=== PATIENT | female | born 1985 | race Caucasian/White ===

== ENCOUNTER 2016-06-01 19:59 | Emergency (ER) | payer MEDICAID ==
[~2016-06-01] VITALS: Ht 167.6 cm; Wt 106.8 kg
[2016-06-01 20:08] VITALS: BP 167/103
[2016-06-01] MEDS ORDERED: FAMOTIDINE 20 MG TABLET PO ONE (20:30)
[2016-06-01] MEDS ORDERED: DIPHENHYDRAMINE 50 MG/ML, 1ML IM ONE (20:30)
[2016-06-01] MEDS ORDERED: LORazepam 1MG TABLET PO ONE (20:30)
[2016-06-01 20:43] LABS: HEMOGLOBIN 12.6 g/dL (11.7-16.4)
[2016-06-01 20:55] LABS: BLOOD UREA NITROGEN 15 mg/dL (7-18)
== END 2016-06-01 21:37 | disposition left against medical advice (07) ==
LOC: ED 21:31
DX: F41.1 Generalized anxiety disorder (principal); F17.200 Nicotine dependence, unspecified, uncomplicated; F11.10 Opioid abuse, uncomplicated; T65.91XA Toxic effect of unspecified substance, accidental (unintentional), initial encounter; Y92.89 Other specified places as the place of occurrence of the external cause; Z88.0 Allergy status to penicillin; Z88.6 Allergy status to analgesic agent
CPT/HCPCS: 36415; 80048; 82040; 85025; 99284

== ENCOUNTER 2017-06-08 19:42 | Observation (INO) | payer MEDICAID ==
[~2017-06-08] VITALS: Ht 167.6 cm; Wt 116.0 kg
[2017-06-08] MEDS ORDERED: BUPR-173 PO (20:42)
[2017-06-08] MEDS ORDERED: HYDR25TA11 PO (20:42)
[2017-06-08 20:47] LABS: BASOPHILS # (AUTO) 0.03 x10^3/uL (0-0.1); BASOPHILS % (AUTO) 1 % (0-1); EOSINOPHILS # (AUTO) 0.06 x10^3/uL (0-0.4); EOSINOPHILS % (AUTO) 1 % (1-7); LYMPHOCYTES # (AUTO) 2.17 x10^3/uL (1-3.4); LYMPHOCYTES % (AUTO) 45 % (22-44); MD NO; MEAN CORPUSCULAR HEMOGLOBIN 29.7 pg (27.0-34.8); MEAN CORPUSCULAR HGB CONC 33.7 g/dL (32.4-35.8); MEAN CORPUSCULAR VOLUME 88.4 fL (80-100); MEAN PLATELET VOLUME 8.4 fL (7.4-10.4); MONOCYTES # (AUTO) 0.27 x10^3/uL (0.2-0.8); MONOCYTES % (AUTO) 6 % (2-9); NEUTROPHILS # (AUTO) 2.33 x10^3/uL (1.8-6.8); NEUTROPHILS % (AUTO) 48 % (42-75); PLATELET COUNT 233 x10^3/uL (130-400); RED BLOOD COUNT 4.47 x10^6/uL (3.82-5.3); RED CELL DISTRIBUTION WIDTH 13.9 % (9.6-15.2)
[2017-06-08] MEDS ORDERED: METH40TA3 PO (20:51)
[2017-06-08 21:01] LABS: ALBUMIN 3.5 g/dL (3.4-5.0); ANION GAP 10 mmol/L (5-15); CALCIUM 8.2 mg/dL (8.5-10.1); CHLORIDE 106 mmol/L (98-107); SALICYLATE LEVEL 2.7 mg/dL (2.8-20.0)
[2017-06-08 21:04] LABS: ALANINE AMINOTRANSFERASE 52 U/L (12-78); ALKALINE PHOSPHATASE 66 U/L (45-117); BILIRUBIN,TOTAL 0.2 mg/dL (0.2-1.0); CREATININE 0.79 mg/dL (0.55-1.02); TOTAL PROTEIN 7.5 g/dL (6.4-8.2)
[2017-06-08 21:21] LABS: ACETAMINOPHEN < 2 mcg/mL (10-30)
[2017-06-08 21:29] LABS: AMPHETAMINE SCREEN, URINE Negative (Negative); BARBITURATE SCREEN, URINE Negative (Negative); BENZODIAZEPINE SCREEN, URINE Negative (Negative); CANNABINOID SCREEN, URINE Negative (Negative); COCAINE SCREEN, URINE Negative (Negative); METHADONE SCREEN, URINE Positive (Negative); OPIATE SCREEN, URINE Positive (Negative)
[2017-06-08] MEDS ORDERED: ZIPRASIDONE 20MG CAPSULE ONE (22:13)
[2017-06-08] MEDS: ZIPRASIDONE 20MG CAPSULE PO SCH (22:18)
[2017-06-09 00:15] LABS: HCG UR SG 1.085 (1.003-1.030)
[2017-06-09 02:39] VITALS: BP 136/81
[2017-06-09 08:58] VITALS: BP 135/99
[2017-06-09] MEDS: METHADONE INTENSOL 10 MG/ML ORAL CONC PO SCH (08:58)
[2017-06-09] MEDS: ACETAMINOPHEN 325 MG TABLET PO PRN ×2 (09:00→17:55)
[2017-06-09] MEDS: BUPROPION SR 100 MG TABLET PO SCH ×2 (09:00→21:00)
[2017-06-09] MEDS: ZIPRASIDONE 20MG CAPSULE PO SCH (09:00)
[2017-06-09 20:00] VITALS: BP 129/93
[2017-06-09] MEDS ORDERED: QUETIAPINE 25MG TABLET PO PRN (20:00)
[2017-06-09] MEDS ORDERED: ZIPRASIDONE 20MG CAPSULE PO ONE (20:30)
[2017-06-09] MEDS: NICOTINE 7 MG/24 HR PATCH.TD24 TD SCH (20:54)
[2017-06-10 07:36] VITALS: BP 125/84
[2017-06-10] MEDS: ACETAMINOPHEN 325 MG TABLET PO PRN ×2 (07:52→19:26)
[2017-06-10] MEDS: METHADONE INTENSOL 10 MG/ML ORAL CONC PO SCH (08:04)
[2017-06-10] MEDS: BUPROPION SR 100 MG TABLET PO SCH ×2 (08:05→20:35)
[2017-06-10 10:37] VITALS: BP 128/89
[2017-06-10] MEDS ORDERED: LORazepam 0.5MG TABLET ONE (10:47)
[2017-06-10] MEDS ORDERED: LORazepam 0.5MG TABLET PO ONE (11:00)
[2017-06-10] MEDS ORDERED: ZIPRASIDONE 20 MG INJ IM PRN (11:30)
[2017-06-10] MEDS ORDERED: ZIPRASIDONE 20MG CAPSULE ONE (11:32)
[2017-06-10] MEDS ORDERED: ZIPRASIDONE 20 MG INJ IM ONE (11:32)
[2017-06-10] MEDS: ZIPRASIDONE 20MG CAPSULE PO PRN (11:38)
[2017-06-10] MEDS ORDERED: LORazepam 0.5MG TABLET PO PRN (19:30)
[2017-06-10 19:55] VITALS: BP 140/88
[2017-06-10] MEDS: NICOTINE 7 MG/24 HR PATCH.TD24 TD SCH (20:00)
[2017-06-11] MEDS: ZIPRASIDONE 20MG CAPSULE PO PRN (00:51)
[2017-06-11] MEDS: ACETAMINOPHEN 325 MG TABLET PO PRN (00:51)
[2017-06-11 08:00] VITALS: BP 130/83
[2017-06-11] MEDS: BUPROPION SR 100 MG TABLET PO SCH ×2 (09:00→09:38)
[2017-06-11] MEDS: METHADONE INTENSOL 10 MG/ML ORAL CONC PO SCH (09:39)
[2017-06-11] MEDS ORDERED: LORA-445 PO (11:15)
[2017-06-11] MEDS ORDERED: ACET325T14 PO (11:15)
[2017-06-11] MEDS ORDERED: ZIPR20CA2 PO (11:15)
[2017-06-11] MEDS ORDERED: NICO-485 TD (11:15)
== END 2017-06-11 11:26 ==
LOC: SUATTDRO 23:40 → ED 23:51 → EDIP 06-09 00:21 → 3E 06-09 02:30
PROVIDERS: ADMIT Hospitalist; ATTEND Hospitalist
DX: F22 Delusional disorders (principal); F23 Brief psychotic disorder; F32.9 Major depressive disorder, single episode, unspecified; F17.210 Nicotine dependence, cigarettes, uncomplicated; E66.01 Morbid (severe) obesity due to excess calories
CPT/HCPCS: 36415; 80053; 80307; 80329; 81025; 85025; 93005; G0378; J3486; G0480

== ENCOUNTER 2017-08-20 16:34 | Observation (INO) | payer MEDICAID ==
[~2017-08-20] VITALS: Ht 167.6 cm; Wt 98.0 kg
[~2017-08-20 16:34] MED LIST: ACET325T14 PO; BUPR-173 PO; HYDR25TA11 PO; LORA-445 PO; METH40TA3 PO; NICO-485 TD; ZIPR20CA2 PO
[2017-08-20] MEDS ORDERED: METH-356 PO (16:53)
[2017-08-20 17:18] LABS: BASOPHILS # (AUTO) 0.03 x10^3/uL (0-0.1); BASOPHILS % (AUTO) 1 % (0-1); EOSINOPHILS # (AUTO) 0.06 x10^3/uL (0-0.4); EOSINOPHILS % (AUTO) 1 % (1-7); LYMPHOCYTES # (AUTO) 2.02 x10^3/uL (1-3.4); LYMPHOCYTES % (AUTO) 36 % (22-44); MD NO; MEAN CORPUSCULAR HEMOGLOBIN 29.5 pg (27.0-34.8); MEAN CORPUSCULAR HGB CONC 33.7 g/dL (32.4-35.8); MEAN CORPUSCULAR VOLUME 87.3 fL (80-100); MEAN PLATELET VOLUME 8.8 fL (7.4-10.4); MONOCYTES # (AUTO) 0.27 x10^3/uL (0.2-0.8); MONOCYTES % (AUTO) 5 % (2-9); NEUTROPHILS # (AUTO) 3.26 x10^3/uL (1.8-6.8); NEUTROPHILS % (AUTO) 58 % (42-75); PLATELET COUNT 209 x10^3/uL (130-400); RED BLOOD COUNT 4.42 x10^6/uL (3.82-5.3); RED CELL DISTRIBUTION WIDTH 13.5 % (9.6-15.2)
[2017-08-20] MEDS ORDERED: BACITRACIN ZINC OINT 500U/GM, 0.9 GM ONE (17:21)
[2017-08-20 17:30] LABS: ACETAMINOPHEN 2 mcg/mL (10-30); ALANINE AMINOTRANSFERASE 38 U/L (12-78); ALBUMIN 3.3 g/dL (3.4-5.0); ANION GAP 5 mmol/L (5-15); CALCIUM 8.8 mg/dL (8.5-10.1); CHLORIDE 109 mmol/L (98-107); CREATININE 0.83 mg/dL (0.55-1.02); SALICYLATE LEVEL 2.2 mg/dL (2.8-20.0)
[2017-08-20 17:34] LABS: ALKALINE PHOSPHATASE 73 U/L (45-117); BILIRUBIN,TOTAL 0.2 mg/dL (0.2-1.0); TOTAL PROTEIN 7.3 g/dL (6.4-8.2)
[2017-08-20] MEDS ORDERED: HALOPERIDOL 5 MG/ML IM PRN (19:30)
[2017-08-20] MEDS ORDERED: BENZTROPINE 1 MG TABLET PO PRN (19:30)
[2017-08-20] MEDS ORDERED: LORazepam 1MG TABLET ONE (19:50)
[2017-08-20] MEDS: LORazepam 1MG TABLET PO PRN (19:51)
[2017-08-20 20:00] LABS: MICROSCOPIC NOT IND
[2017-08-20 20:04] LABS: CULTURE INDICATED? NO
[2017-08-20 20:11] LABS: AMPHETAMINE SCREEN, URINE Negative (Negative); BARBITURATE SCREEN, URINE Negative (Negative); BENZODIAZEPINE SCREEN, URINE Negative (Negative); CANNABINOID SCREEN, URINE Negative (Negative); COCAINE SCREEN, URINE Negative (Negative); METHADONE SCREEN, URINE Positive (Negative); OPIATE SCREEN, URINE Positive (Negative)
[2017-08-21] MEDS: METHADONE 5 MG TABLET PO SCH (09:20)
[2017-08-21] MEDS ORDERED: LORazepam 1MG TABLET ONE ×4 (09:39→21:57)
[2017-08-21] MEDS: LORazepam 1MG TABLET PO PRN ×4 (09:45→22:00)
[2017-08-21] MEDS ORDERED: NICOTINE 14MG/24 HR PATCH.TD24 ONE (11:00)
[2017-08-21] MEDS: NICOTINE 14MG/24 HR PATCH.TD24 TD SCH (11:15)
[2017-08-21] MEDS ORDERED: ACETAMINOPHEN 325 MG TABLET ONE ×3 (13:11→22:51)
[2017-08-21] MEDS: ACETAMINOPHEN 325 MG TABLET PO PRN ×3 (13:16→22:52)
[2017-08-21] MEDS ORDERED: TEMAZEPAM 15 MG CAPSULE ONE (20:14)
[2017-08-21] MEDS: TEMAZEPAM 15 MG CAPSULE PO PRN (20:16)
[2017-08-21] MEDS ORDERED: HALOPERIDOL 5 MG TABLET ONE (21:57)
[2017-08-21] MEDS: HALOPERIDOL 5 MG TABLET PO PRN (22:00)
[2017-08-22] MEDS ORDERED: TEMAZEPAM 15 MG CAPSULE ONE (02:12)
[2017-08-22] MEDS ORDERED: LORazepam 1MG TABLET ONE ×4 (02:13→17:31)
[2017-08-22] MEDS: TEMAZEPAM 15 MG CAPSULE PO PRN ×2 (02:14→21:58)
[2017-08-22] MEDS: LORazepam 1MG TABLET PO PRN ×5 (02:14→21:43)
[2017-08-22] MEDS ORDERED: HALOPERIDOL 5 MG/ML ONE (03:10)
[2017-08-22] MEDS ORDERED: HALOPERIDOL 5 MG TABLET ONE ×4 (03:10→17:17)
[2017-08-22] MEDS ORDERED: ACETAMINOPHEN 325 MG TABLET ONE ×3 (03:10→17:17)
[2017-08-22] MEDS: ACETAMINOPHEN 325 MG TABLET PO PRN ×4 (03:18→21:43)
[2017-08-22] MEDS ORDERED: ZIPRASIDONE 20 MG INJ IM ONE ×2 (04:10→04:30)
[2017-08-22] MEDS: HALOPERIDOL 5 MG TABLET PO PRN ×4 (04:21→17:23)
[2017-08-22] MEDS: METHADONE 5 MG TABLET PO SCH (08:16)
[2017-08-22] MEDS ORDERED: NICOTINE 14MG/24 HR PATCH.TD24 ONE (12:14)
[2017-08-22] MEDS: NICOTINE 14MG/24 HR PATCH.TD24 TD SCH (12:20)
[2017-08-22 18:14] VITALS: BP 119/77
[2017-08-22 21:42] VITALS: BP 111/66
[2017-08-23] MEDS: ACETAMINOPHEN 325 MG TABLET PO PRN ×3 (04:13→21:29)
[2017-08-23 07:33] VITALS: BP 116/80
[2017-08-23] MEDS: METHADONE 5 MG TABLET PO SCH (08:13)
[2017-08-23] MEDS: NICOTINE 14MG/24 HR PATCH.TD24 TD SCH ×2 (11:00→11:34)
[2017-08-23] MEDS: LORazepam 1MG TABLET PO PRN (16:38)
[2017-08-23 19:36] VITALS: BP 119/63
[2017-08-23] MEDS: TEMAZEPAM 15 MG CAPSULE PO PRN (20:53)
[2017-08-24] MEDS: ACETAMINOPHEN 325 MG TABLET PO PRN ×4 (01:45→20:26)
[2017-08-24] MEDS: LORazepam 1MG TABLET PO PRN ×4 (01:53→20:26)
[2017-08-24 07:50] VITALS: BP 122/80
[2017-08-24 08:00] VITALS: BP 122/80
[2017-08-24] MEDS: METHADONE 5 MG TABLET PO SCH (08:07)
[2017-08-24] MEDS: SERTRALINE 50MG TABLET PO SCH (09:18)
[2017-08-24] MEDS: NICOTINE 14MG/24 HR PATCH.TD24 TD SCH (11:00)
[2017-08-24 19:57] VITALS: BP 90/63
[2017-08-24 20:26] VITALS: BP 129/85
[2017-08-24] MEDS: TEMAZEPAM 15 MG CAPSULE PO PRN (20:26)
[2017-08-25 08:00] VITALS: BP 121/77
[2017-08-25] MEDS: METHADONE 5 MG TABLET PO SCH (10:16)
[2017-08-25] MEDS: NICOTINE 14MG/24 HR PATCH.TD24 TD SCH (10:17)
[2017-08-25] MEDS: SERTRALINE 50MG TABLET PO SCH (10:17)
[2017-08-25 10:18] VITALS: BP 121/77
[2017-08-25] MEDS: ACETAMINOPHEN 325 MG TABLET PO PRN ×2 (12:03→18:20)
[2017-08-25] MEDS: LORazepam 1MG TABLET PO PRN ×3 (12:03→19:20)
[2017-08-25 19:10] VITALS: BP 125/74
[2017-08-25] MEDS: TEMAZEPAM 15 MG CAPSULE PO PRN (20:18)
[2017-08-26] MEDS: LORazepam 1MG TABLET PO PRN ×4 (00:01→13:54)
[2017-08-26] MEDS: ACETAMINOPHEN 325 MG TABLET PO PRN ×3 (00:01→11:25)
[2017-08-26 08:04] VITALS: BP 116/68
[2017-08-26] MEDS: SERTRALINE 50MG TABLET PO SCH (08:33)
[2017-08-26] MEDS: METHADONE 5 MG TABLET PO SCH (08:33)
[2017-08-26] MEDS ORDERED: NICOTINE 21 MG/24 HR PATCH.TD24 ONE (10:00)
[2017-08-26] MEDS ORDERED: NICOTINE 21 MG/24 HR PATCH.TD24 TD SCH (11:00)
== END 2017-08-26 14:56 ==
LOC: ED 18:02 → EDIP 19:04 → INTOOBSV 19:04 → 2N 08-22 17:57
PROVIDERS: ADMIT Internal Medicine; ATTEND Internal Medicine
DX: R45.851 Suicidal ideations (principal); F23 Brief psychotic disorder; F11.20 Opioid dependence, uncomplicated; E44.1 Mild protein-calorie malnutrition; F17.210 Nicotine dependence, cigarettes, uncomplicated; F33.2 Major depressive disorder, recurrent severe without psychotic features
CPT/HCPCS: 36415; 80053; 80307; 80329; 81003; 84703; 85025; 96372; 99285; G0378; J1630; J3486; G0480

== ENCOUNTER 2020-09-19 12:24 | Emergency (ER) | payer MEDICAID ==
[~2020-09-19] VITALS: Ht 165.1 cm; Wt 131.3 kg
[~2020-09-19 12:24] MED LIST changes: +HYDR-826 PO; -HYDR25TA11 PO; +METH10TA2 PO
--- NOTE | 2020-09-19 12:36 | NUR ---
MONTY CARDENAS FROM [facility] FOR WOUND RECHECK. PT REPORTS USING PCN X1.5 MO AGO, BUT WOUND REMAINS UNHEALING. UNCERTAIN IF INFECTION IS PRESENT. RN FROM [facility] AT BEDSIDE.
[2020-09-19] MEDS ORDERED: ALPR2TAB2 PO (12:42)
[2020-09-19] MEDS ORDERED: HYDR50TA99 PO (12:42)
[2020-09-19] MEDS ORDERED: ARIP30TA4 PO (12:42)
[2020-09-19] MEDS ORDERED: TRAZ50TA66 PO (12:42)
--- NOTE | 2020-09-19 12:57 | NUR ---
PT ASKING FOR FOOD AND PO FLUIDS. EDUCATED ON NEED TO WAIT FOR DR TO ASSESS PT. PT VERBALIZES UNDERSTANDING OF PROCESS.
--- NOTE | 2020-09-19 13:14 | NUR ---
Covering primary for break, pt calm in bed.
[2020-09-19] MEDS ORDERED: NEOSPORIN OINT. PKT 1 PACKET ONE (13:50)
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
--- NOTE | 2020-09-19 14:31 | NUR ---
Report to JEOVANY Bloom at [facility].
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
--- NOTE | 2020-09-19 16:11 | NUR ---
ETA [facility] at [id number]
[2020-09-19 16:35] VITALS: BP 152/86
== END 2020-09-19 16:37 ==
LOC: ED 14:25
DX: L97.229 Non-pressure chronic ulcer of left calf with unspecified severity (principal); F17.200 Nicotine dependence, unspecified, uncomplicated
CPT/HCPCS: 99283